=== PATIENT | female | born 1990 | race African-American/Black ===

== ENCOUNTER 2019-10-16 22:29 | Emergency (ER) | payer OTHER ==
[~2019-10-16] VITALS: Ht 175.3 cm; Wt 79.8 kg
[2019-10-16 22:49] LABS: URINE BILIRUBIN NEGATIVE (Negative); URINE BLOOD NEGATIVE (Negative); URINE CLARITY CLEAR; URINE COLOR YELLOW; URINE GLUCOSE-RANDOM* NEGATIVE (Negative); URINE KETONES NEGATIVE (Negative); URINE LEUKOCYTES-REFLEX NEGATIVE (Negative); URINE NITRITE-REFLEX NEGATIVE (Negative); URINE PROTEIN (DIPSTICK) NEGATIVE (Negative); URINE SPECIFIC GRAVITY 1.015 (1.005-1.035); URINE UROBILINOGEN >= 8.0 E.U./dl (0.2-1.0)
[2019-10-16 23:51] LABS: ABSOLUTE NEUTROPHILS 6.1 thou/uL (1.4-8.2); BASOPHILS 0.4 % (0.0-2.0); EOSINOPHILS 2.9 % (0.0-3.0); HEMATOCRIT 30.7 % (37.0-47.0); HEMOGLOBIN 9.7 gm/dL (12.0-15.0); LYMPHOCYTES 23.4 % (24.0-44.0); MCH 23.2 pg (26.0-34.0); MCHC 31.5 g/dL (28.0-37.0); MCV 73.6 fL (80.0-100.0); MONOCYTES 6.3 % (1.0-8.0); PLATELET COUNT 262 thou/uL (150-400); RBC 4.18 mil/uL (4.20-5.00); RDW 20.2 % (10.5-14.5)
[2019-10-16 23:53] LABS: CALCIUM 8.5 mg/dL (8.5-10.1); CREATININE 0.8 mg/dL (0.6-1.0); POTASSIUM 3.1 mmol/L (3.5-5.1)
[2019-10-16 23:59] LABS: ALBUMIN 3.1 g/dL (3.4-5.0); DIRECT BILIRUBIN 0.1 mg/dL (<0.1-0.2); TOTAL BILIRUBIN 0.8 mg/dL (<0.1-1.0); TOTAL PROTEIN 7.4 g/dL (6.4-8.2)
[2019-10-17] MEDS ORDERED: ZOFRAN ODT4 MG PO (00:35)
[2019-10-17] MEDS ORDERED: IBUPROFEN 600600 M1 PO (00:35)
[2019-10-17] MEDS ORDERED: TYLENOL WITH CO1 TA1 PO (00:40)
[2019-10-17 01:02] VITALS: BP 131/80
== END 2019-10-17 01:09 | disposition home or self-care (01) ==
LOC: ER 22:29
PROVIDERS: Emergency Medicine
DX: J06.9 Acute upper respiratory infection, unspecified (principal); R11.2 Nausea with vomiting, unspecified; R10.2 Pelvic and perineal pain; J45.909 Unspecified asthma, uncomplicated; Z91.040 Latex allergy status; Z88.8 Allergy status to other drugs, medicaments and biological substances

== ENCOUNTER 2019-11-03 23:41 | Emergency (ER) | payer OTHER ==
[~2019-11-03] VITALS: Ht 175.3 cm; Wt 124.3 kg
[~2019-11-03 23:41] MED LIST: IBUPROFEN 600600 M1 PO; TYLENOL WITH CO1 TA1 PO; ZOFRAN ODT4 MG PO
[2019-11-03] MEDS ORDERED: PROAIR HFA8.5 GM INH (23:50)
[2019-11-04] MEDS ORDERED: TESSALON PERLE100 M1 PO (00:58)
[2019-11-04 01:08] VITALS: BP 118/75
== END 2019-11-04 01:09 | disposition home or self-care (01) ==
LOC: ER 23:41
DX: R05 Cough (principal); J45.909 Unspecified asthma, uncomplicated; Z91.040 Latex allergy status

== ENCOUNTER 2020-02-06 13:55 | Inpatient (IN) | payer OTHER ==
[~2020-02-06] VITALS: Ht 175.3 cm; Wt 101.6 kg
[~2020-02-06 13:55] MED LIST changes: +PROAIR HFA8.5 GM INH; +TESSALON PERLE100 M1 PO
[2020-02-06 14:05] VITALS: BP 122/98
[2020-02-06] MEDS ORDERED: ONDANSETRON ODT4 MG PO (14:10)
[2020-02-06] MEDS ORDERED: SUPER THERAVIT1 EACH PO (14:10)
[2020-02-06 14:16] LABS: URINE BILIRUBIN 2+ (Negative); URINE BLOOD NEGATIVE (Negative); URINE CLARITY CLEAR; URINE COLOR YELLOW; URINE GLUCOSE-RANDOM* NEGATIVE (Negative); URINE KETONES TRACE (Negative); URINE LEUKOCYTES-REFLEX NEGATIVE (Negative); URINE NITRITE-REFLEX NEGATIVE (Negative); URINE PROTEIN (DIPSTICK) NEGATIVE (Negative); URINE SPECIFIC GRAVITY >= 1.030 (1.005-1.035)
[2020-02-06 14:18] LABS: ICTOTEST (BILI CONFIRMATORY) Negative (Negative)
[2020-02-06 14:49] LABS: ABSOLUTE NEUTROPHILS 2.5 thou/uL (1.4-8.2); BASOPHILS 0.6 % (0.0-2.0); EOSINOPHILS 3.6 % (0.0-3.0); HEMATOCRIT 36.3 % (37.0-47.0); HEMOGLOBIN 11.7 gm/dL (12.0-15.0); LYMPHOCYTES 37.5 % (24.0-44.0); MCH 26.2 pg (26.0-34.0); MCHC 32.2 g/dL (28.0-37.0); MCV 81.5 fL (80.0-100.0); MONOCYTES 9.6 % (1.0-8.0); PLATELET COUNT 261 thou/uL (150-400); POLYS 48.7 % (36.0-66.0); RBC 4.46 mil/uL (4.20-5.00); RDW 17.5 % (10.5-14.5); WBC 5.2 thou/uL (4.0-11.0)
[2020-02-06 15:07] LABS: CALCIUM 8.6 mg/dL (8.5-10.1); CREATININE 0.7 mg/dL (0.6-1.0)
[2020-02-06 15:13] LABS: ALBUMIN 3.3 g/dL (3.4-5.0); TOTAL BILIRUBIN 0.8 mg/dL (<0.1-1.0); TOTAL PROTEIN 7.2 g/dL (6.4-8.2)
[2020-02-06 15:14] LABS: POTASSIUM 2.9 mmol/L (3.5-5.1)
[2020-02-06 20:02] VITALS: BP 120/85
--- NOTE | 2020-02-06 20:07 | NUR ---
GROUP CAPTAIN CALLED IPATIENT UNIT TO GIVE PT REPORT BUT WAS TOLD CALL WILL RETURNED RECIEVING NURSE WAS GIVING NURSING CARE.
--- NOTE | 2020-02-06 20:24 | NUR ---
SECOND CALL PLACED TO INPATIENT UNIT. RECIEVING NURSE STILL IN THE MIDDLE OF PT CARE AND WILL RETURN CALL SHERRON.
--- NOTE | 2020-02-06 22:00 | NUR ---
Pt. arrived to the unit from the emergency room accompanied by staff. She is alert and oriented. Admission assessment and history is completed. C/o abdominal pain and nausea and has been medicated.
[2020-02-07 05:06] LABS: HEMATOCRIT 31.9 % (37.0-47.0); HEMOGLOBIN 10.3 gm/dL (12.0-15.0); MCH 26.5 pg (26.0-34.0); MCHC 32.2 g/dL (28.0-37.0); MCV 82.4 fL (80.0-100.0); RBC 3.87 mil/uL (4.20-5.00); RDW 17.2 % (10.5-14.5); WBC 4.5 thou/uL (4.0-11.0)
[2020-02-07 05:27] LABS: CALCIUM 7.8 mg/dL (8.5-10.1); CREATININE 0.6 mg/dL (0.6-1.0); MAGNESIUM 2.2 mg/dL (1.8-2.4)
--- NOTE | 2020-02-07 05:34 | NUR ---
Pt. medicated for c/o abdominal pain and nausea (see emar) with some relief. Assisted to the bathroom with stand by assistance and voided without difficulty.
[2020-02-07 07:28] VITALS: BP 118/76
[2020-02-07 13:07] LABS: % SATURATION 11 % (20-39); IRON 32 ug/dL (50-170); TIBC 279 ug/dL (250-450)
--- NOTE | 2020-02-07 13:35 | NUR ---
tried calling pt x 2 in room, no answer will cont following as needed for dc needs.
[2020-02-07 15:40] VITALS: BP 137/77
--- NOTE | 2020-02-07 15:53 | NUR ---
cm spoke with pt via phone call. intro to cm, transition of care. pt a & o x 4, pleasant and able to make her needs know. noted in chart possible going for egd scope tomorrow per GI and records requested from [facility] clinic. "live at home with family and 4 children. help my mom and take care of my children. have family taking care for them. 2 steps to enter then all on main floor. 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 manage own medication. independent when feeling ok. no dme. no past hh or rehab."/bobbi. will cont following as needed for dc needs. no anticipated needs.
--- NOTE | 2020-02-07 17:07 | NUR ---
Assumed pt care this am, vs stable pt us still confused but redirectebale. Blood sugars done medication given as per emar. Diet and medications are well tolerated. Refused wound dressing since pt stated she wanted this done before bedtime. POC followed with no signs or verbalizations of distress noted. IV removed, DC 'instructions and prescriptions given to the pt, was wheeled down to the pharmacy to fill prescriptions then was picked up by transport. Pt is now dc
--- NOTE | 2020-02-07 19:27 | NUR ---
Assumed pt care this am, alert and oriented x 4 received NPO. Pain managed with medication, partial relief noted. Covid test done by covid nurse results are negative. Nausea noted as well managed with medication. POC followed, no lsigns of distress noted.
[2020-02-07 19:43] VITALS: BP 128/74
[2020-02-08 03:34] VITALS: BP 135/84
[2020-02-08 04:29] LABS: HEMATOCRIT 32.5 % (37.0-47.0); HEMOGLOBIN 10.5 gm/dL (12.0-15.0); MCH 26.8 pg (26.0-34.0); MCHC 32.4 g/dL (28.0-37.0); MCV 82.5 fL (80.0-100.0); RBC 3.93 mil/uL (4.20-5.00); RDW 17.1 % (10.5-14.5); WBC 4.5 thou/uL (4.0-11.0)
--- NOTE | 2020-02-08 07:05 | NUR ---
PROGRESS PT A/O X4 UP AD MAGUI TOLERATING CLEAR LIQUID DIET, IVF'S INFUSING WITHOUT DIFFICULTY. WOUNDS TO BILATERAL FEET CHANGED CLEANSED WITH NS IODINE APPLIED AND WRAPPED WITH KERLIX. TAKING MORPHINE FOR PAIN PRN. VOIDING QS TO HAVE I&D TODAY CONSENT ON FRONT OF CHART.
[2020-02-08 07:40] VITALS: BP 116/80
--- NOTE | 2020-02-08 09:30 | NUR ---
ASSUMED CARE AT 0700.PT ALERT AND ORIENTED. C/O NAUSEA AND PAIN. WILL GIVE PRN MEDS ORDERED. IVF INFUSING WITHOUT COMPLICATIONS. PT NPO WAITING FOR HER PROCEDURE. WILL CONTINUE TO MONITOR
[2020-02-08 11:37] VITALS: BP 132/89
--- NOTE | 2020-02-08 15:56 | P ---
[facility] [place] [address] PROCEDURE REPORT Name: JUNIOR HOUSTON Room #: 463- ADM IN M.R.#: [id number] Admission: 02/06/20 Attend Phys: Sandeep Gotti MD Discharge: Date of : 89 Report #: [id number] THIS REPORT FOR: cc: MARLENY - Kimberley family physician/PCP MARLENY - No family physician/PCP Efrain Cuello MD ~ CC: MARLENY physician/PCP Sandeep Gotti DATE OF SERVICE: 02/08/2020 UPPER ENDOSCOPY REPORT BRIEF HISTORY: The patient is a 29-year-old woman who underwent a gastric sleeve surgery for obesity, last May. She developed evidence of aspiration and worsening reflux symptoms and was converted to a Han-en-Y gastric bypass on 12/31/2019 of this year. She has done well until the past few days when she developed increasing upper abdominal pain as well as nausea and vomiting. Gastric mucosal biopsies were obtained to evaluate for H. pylori. PREOPERATIVE DIAGNOSIS: History of bariatric surgery with nausea, vomiting, abdominal pain. POSTOPERATIVE DIAGNOSES: 1. Anastomotic ulcer. 2. Surgical changes consistent with Han-en-Y gastric bypass. MEDICATIONS: Deep sedation with propofol per anesthesia. SPECIMEN: Biopsies of gastric mucosa, rule out H. pylori. ESTIMATED BLOOD LOSS: 3 mL. PROCEDURE: EGD with biopsy. FINDINGS: Prior to propofol sedation, procedure of upper endoscopy was discussed with the patient as well as potential risks, benefits and complications. She indicates she understands and desires to proceed. DESCRIPTION OF PROCEDURE: With the patient in left lateral decubitus position, the Olympus video endoscope was inserted in the cervical esophagus under direct vision without difficulty. Examination of this organ through its entire length revealed normal esophageal mucosa down to the squamocolumnar junction. The squamocolumnar junction was inspected and noted to be unremarkable. No evidence of esophagitis, strictures or masses. The scope was advanced into the gastric pouch. Findings were consistent with Han-en-Y gastric bypass. Her gastric [facility] [address] [place] [address] PROCEDURE REPORT Name: JUNIOR HOUSTON Room #: [address] [place] [address] [place] ..#: [id number] Admission: 02/06/20 Attend Phys: Sandeep Gotti MD Discharge: Date of : 89 Report #: [id number] pouch was about the size of a lemon. The gastric mucosa was intact. There was no evidence of ulceration or bleeding. Examination of the anastomosis revealed a linear ulcer about 10-12 mm in length along the anastomotic margin. There was suture material in this area as well. The anastomosis was not strictured. There was no evidence of bleeding. It had a benign appearance. The blind end of the small bowel was about 3 inches in length and was unremarkable without evidence of ulceration. The scope was passed down the Han-en-Y limb as far as possible. The mucosa was normal. There was no evidence of stricturing or bleeding. The Han-en-Y anastomosis could not be identified. At that point, the scope was slowly withdrawn and careful circumferential views confirmed the above findings. The patient tolerated the procedure well. DISPOSITION: The patient with recent onset of abdominal pain, nausea and vomiting. She has an anastomotic ulcer. Biopsies were obtained to evaluate for H. pylori. We will add sucralfate at this point in time. We will start her on clear liquids. <ELECTRONICALLY SIGNED> By: Efrain Cuello MD 02/08/20 1556 1050 1222 Efrain Cuello MD /nt
--- NOTE | 2020-02-08 16:12 | NUR ---
PT HAD EGD THIS DAY. IT IS ANTICIPATED THAT PT WILL LIKELY BE ABLE TO DC HOME WITH NO NEEDS ONCE MEDICALLY STABLE. CM ABLE TO ASSIST SHOULD ANY NEEDS ARISE.
[2020-02-08 19:55] VITALS: BP 132/73
--- NOTE | 2020-02-09 02:14 | NUR ---
PT WAS TRANSFERRED TO THE UNIT DURING SHIFT CHANGE FROM 4W.PT AXOX4.PT TOOK A SHOWER AT HS.PT C/O PAIN AND NAUSEA,MANAGED WITH MED.PT UP ADLIB IN ROOM.PT CONT ON IVF ORDERED.PT RESTING ON HER BED AT THIS TIME.CALL LIGHT WITHIN REACH.
[2020-02-09 04:00] VITALS: BP 127/82
[2020-02-09 10:33] LABS: ABSOLUTE NEUTROPHILS 2.5 thou/uL (1.4-8.2); BASOPHILS 0.2 % (0.0-2.0); EOSINOPHILS 3.5 % (0.0-3.0); HEMATOCRIT 29.8 % (37.0-47.0); HEMOGLOBIN 9.7 gm/dL (12.0-15.0); LYMPHOCYTES 33.4 % (24.0-44.0); MCH 26.5 pg (26.0-34.0); MCHC 32.6 g/dL (28.0-37.0); MCV 81.4 fL (80.0-100.0); MONOCYTES 6.9 % (1.0-8.0); PLATELET COUNT 191 thou/uL (150-400); RBC 3.66 mil/uL (4.20-5.00); RDW 16.4 % (10.5-14.5); WBC 4.6 thou/uL (4.0-11.0)
[2020-02-09 10:47] LABS: ALBUMIN 2.4 g/dL (3.4-5.0); CALCIUM 7.7 mg/dL (8.5-10.1); CREATININE 0.6 mg/dL (0.6-1.0); MAGNESIUM 1.4 mg/dL (1.8-2.4); TOTAL BILIRUBIN 0.6 mg/dL (<0.1-1.0); TOTAL PROTEIN 5.5 g/dL (6.4-8.2)
[2020-02-09 10:50] LABS: POTASSIUM 2.8 mmol/L (3.5-5.1)
[2020-02-09 13:36] LABS: TSH 0.624 uIU/mL (0.358-3.740)
[2020-02-09 16:25] LABS: HEMATOCRIT 31.3 % (37.0-47.0); HEMOGLOBIN 10.2 gm/dL (12.0-15.0); MCH 26.7 pg (26.0-34.0); MCHC 32.7 g/dL (28.0-37.0); MCV 81.5 fL (80.0-100.0); RBC 3.83 mil/uL (4.20-5.00); WBC 4.3 thou/uL (4.0-11.0)
[2020-02-09 16:34] LABS: ALBUMIN 2.5 g/dL (3.4-5.0); CALCIUM 7.6 mg/dL (8.5-10.1); CREATININE 0.6 mg/dL (0.6-1.0); MAGNESIUM 1.8 mg/dL (1.8-2.4); POTASSIUM 3.1 mmol/L (3.5-5.1); TOTAL BILIRUBIN 0.5 mg/dL (<0.1-1.0)
[2020-02-09 17:17] VITALS: BP 117/80
[2020-02-09 20:06] VITALS: BP 131/80
--- NOTE | 2020-02-09 20:25 | NUR ---
PT CARE ASSUMED AT 0700. A&Ox4. PT UP AT MAGUI INDEPENDENTLY IN THE ROOM. PT CONTINUES TO HAVE NAUSEA WHEN EATING AND HAS HAD ISSUES WITH THE KITCHEN SENDING DISHES THAT CONTAIN TOO MANY CARBS. PT CANNOT HAVE CARBONATED DRINKS DUE TO HER GASTRIC SLEEVE. PAIN MANAGED WITH PAIN MEDICATION Q3H. XR DONE OF THE ABDOMEN WITH NO OBSTRUCTION VISUAL. PT IV PATENT WITH NO REDNESS OR EDEMA. IV FLUIDS INFUSING. CALL LIGHT IN REACH. PT HAS NOT HAD A BM SINCE 02/02 AND HAS SUPPOSITORIES AND MILK OF MAGNESIUM ORDERED. WILL CONTINUE TO MONITOR.
--- NOTE | 2020-02-10 02:54 | NUR ---
PT C/O PAIN ON HER ABD,MANAGED WITH MED.PT STATED THAT SHE WAS TOLD THAT SHE WILL RECEIVE MORE POTASSIUM SINCE HER POTASSIUM WAS STILL 3.1,SAMPLE CASE PORTER ON DUTY NOTIFIED,ORDER NOTED AND CARRIED OUT.PT UP ADLIB IN HER ROOM.PT RECIEVED BISACODYL SUPPOSITORY,PT WAS ABLE TO HAVE SMALL STOOL BUT SHE STATED THAT SHE STILL NEED TO GO.IVF ORDERED.PT RESTING ON HER BED AT THIS TIME.CALL LIGHT WITHIN REACH.
[2020-02-10 04:25] VITALS: BP 125/64
[2020-02-10 07:10] VITALS: BP 125/76
--- NOTE | 2020-02-10 09:25 | NUR ---
SEE RAPID RESPONSE INTERVENTION. PT WILL STAY ON 4 SOUTH.
--- NOTE | 2020-02-10 20:08 | NUR ---
PT CARE ASSUMED AT 0700. A&Ox4. ELECTROLYTE PROTOCOL IN PLACE. PT COMPLAINED ABOUT CHEST PAIN THIS MORNING THAT WAS RADIATING TO HER ARM AND BACK WITH CHEST PAIN. A RAPID WAS CALLED. EKG NORMAL. 2 LITERSE FOR COMFORT. TROPONIN NEGATIVE. PAIN IS NOT MANAGED WELL WITH THE PAIN MEDICATION ON BOARD. PE PROTOCOL CT WAS PERFORMED WITH AN ELEVATED D-DIMER AND AN ENLARGED GALLBLADDER WAS VISUALIZED. PT IS TO HAVE A PIPIDA TOMORROW IF POS. SURGWILL BE CONSULTED. PT IS NPO WITH SIPS OF WATER FOR PILLS. POTASSIUM CONITUES TO BE LOW AND PT IS NOW ON A ELECTROLYTE PROTOCOL. PT DECLINED FAMILY UPDATE. GLUCOSE WAS LOW RESOLVED WITH 2 ORANGE JUICES AND FLUIDS BEING SWITCHED TO D5 0.45%. WILL CONTINUE TO MONITOR. REPORT GIVEN TO SHANDA MALONE.
[2020-02-10 20:45] VITALS: BP 124/83
[2020-02-11 03:40] VITALS: BP 122/82
[2020-02-11 04:42] LABS: BASOPHILS 0.4 % (0.0-2.0); EOSINOPHILS 4.7 % (0.0-3.0); HEMATOCRIT 31.6 % (37.0-47.0); HEMOGLOBIN 10.3 gm/dL (12.0-15.0); LYMPHOCYTES 32.2 % (24.0-44.0); MCH 26.8 pg (26.0-34.0); MCHC 32.7 g/dL (28.0-37.0); MCV 82.1 fL (80.0-100.0); PLATELET COUNT 209 thou/uL (150-400); POLYS 56.7 % (36.0-66.0); RBC 3.85 mil/uL (4.20-5.00); RDW 16.9 % (10.5-14.5); WBC 5.3 thou/uL (4.0-11.0)
[2020-02-11 04:43] LABS: ALBUMIN 2.4 g/dL (3.4-5.0); CREATININE 0.6 mg/dL (0.6-1.0); DIRECT BILIRUBIN 0.1 mg/dL (<0.1-0.2); MAGNESIUM 1.6 mg/dL (1.8-2.4); PHOSPHORUS 3.6 mg/dL (2.5-4.9); POTASSIUM 3.2 mmol/L (3.5-5.1); TOTAL BILIRUBIN 0.6 mg/dL (<0.1-1.0); TOTAL PROTEIN 5.6 g/dL (6.4-8.2)
--- NOTE | 2020-02-11 05:32 | NUR ---
PT AOX4. PT REPORTS NONCARDIAC PAIN IN CHEST AND PAIN IN ABDOMEN. PT REPORTS CURRENT PRN PAIN MEDICATION INEFFECTIVE. LEASING ASSOCIATE PROVIDER NOTIFIED, RECEIVED ORDER FOR PRN IV 2MG MORPHINE Q3HR. PT TOLERATING NPO WITH SIPS OF WATER WITH MEDICATIONS. PT AMBULATING INDEPENDENTLY. PT REPORTS SHE HAS NOT BEEN SLEEPING WELL AND HAS 7/10 ANXIETY RELATED TO HOSPITAL STAY AND UPCOMING PROCEDURE. LEASING ASSOCIATE PROVIDER NOTIFIED, EMAR UPDATED. PT OBSERVED RESTING WITHOUT INTERRUPTION OR OBSERVATION OF PAIN, DISCOMFORT, OR SOB. ENCOURAGED PT TO NOTIFY STAFF FOR ALL NEEDS. CALL LIGHT WITHIN REACH, BED ALARM ON, BED IN LOWEST POSITION. WILL CONTINUE TO MONITOR.
[2020-02-11 07:25] VITALS: BP 137/90
--- NOTE | 2020-02-11 08:05 | EKG ---
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
--- NOTE | 2020-02-11 17:08 | PATH ---
[facility] [address] [place] [address] PATHOLOGY RPT PROCEDURE Name: SANDRA DELGADILLO Room #: 441-P ADM IN M.R.#: [id number] Admission: 02/06/20 Date of : 89 Discharge: Report #: [id number] Path Case #: [id number] [facility] Accession Number: [id number] . 01 Material submitted: . stomach - BX OF STOMACH . 01 Clinical history: . GERD . 02 Diagnosis: Gastric mucosa, stomach rule out H. pylori, endoscopic biopsy: - Mild chronic inflammation. - Negative for intestinal metaplasia or atrophy. - Negative for Helicobacter pylori (properly controlled immunohistochemical stain performed). (IUV/db; 02/11/2020) LBQ 02/11/2020 1258 Local . 02 Electronically signed: . Maritza Anand MD, Pathologist NPI- [id number] . 01 Gross description: . Received in formalin labeled "Sandra Delgadillo, BX of stomach rule out H. pylori" is a 0.6 x 0.4 x 0.1 cm aggregate of solis-brown soft tissue fragments. The specimen is submitted entirely in A1. ([facility]; 02/10/2020) [facility] 02/10/2020 1219 Local . 02 Pathologist provided ICD-10: K29.50 . 02 CPT . 106410, [id number] Specimen Comment: A courtesy copy of this report has been sent to [phone] Specimen Comment: [phone] Specimen Comment: Report sent to / DR GRIJALVA Performed at: [address], [place], [place] [id number] MD Lamine Hernandez MD Phone: [phone] Performed at: [address] [id number] MD Maritza Anand MD Phone: [phone]
[2020-02-11 19:19] VITALS: BP 111/72
--- NOTE | 2020-02-11 20:02 | NUR ---
PT ASSESSED AT START OF SHIFT. NPO THIS AM UNTIL AFTER PIPIDA SCAN. DIET ADVANCED TO REGULAR PER PT ABILITY TO EAT W/O NAUSEA OR PAIN. DR. HOFFMANN IN RECENENTLY AND TOLD PT SHE NEEDS TO BE SEEN BY SURGEON HER PIPIDA RESPONSE WAS NOT NORMAL AND SHE MAY STILL NEED TO HAVE GALLBLADDER OUT. SHE DID EAT VERY SM AMT OF CHICKEN AND POTATOES AND WHILE NO NAUSEA DID HAVE INCREASING ABD PAIN.
--- NOTE | 2020-02-12 04:35 | NUR ---
ASSUMED PT CARE AT 1900. PAIN BEING MANAGED WITH IV MEDS. UP AD MAGUI IN ROOM. NO SIGNIFICANT CHANGES OVERNIGHT, CURRENTLY SLEEPING IN BED WITH CALL LIGHT IN REACH.
[2020-02-12 07:00] VITALS: BP 106/59
[2020-02-12] MEDS ORDERED: TRAZODONE HCL50 MG PO (10:35)
[2020-02-12] MEDS ORDERED: CARAFATE 1 GM TA1 G1 PO (10:36)
[2020-02-12] MEDS ORDERED: PANTOPRAZOLE SO40 M1 PO (10:36)
--- NOTE | 2020-02-12 11:42 | NUR ---
ON-GOING ASSESSMENT: CM REVIEWED CHART AND SPOKE WITH PATIENT VIA TELEPHONE. PT HAS ORDERS TO DISCHARGE HOME TODAY. PT REPORTS HAVING A RIDE HOME. PT REPORTS HAVING NO NEEDS FROM CM PRIOR TO DISCHARGE.
[2020-02-12 16:00] VITALS: BP 115/74
--- NOTE | 2020-02-12 16:21 | NUR ---
ASSUMED CARE OF THE PT AT 0700. PT IS AMBULATORY AND NOT A FALL RISK. PAIN CONTROLLED BY PAIN MEDS, SEE EMAR. PT CANNOT TOLERATE EATING, CAUSES N/V. R UPPERARM DRY AND INTACT. NO SCD'S. PER GI AND SURGEON PT IS TO HAVE SX TOMORROW. AWAITING CALL FROM SURGEON TO CONFIRM SX. FALL PRECAUTIONS IN PLACE, BED IN THE LOWEST POSITION AND CALL LIGHT IS WITHIN REACH WILL CONTINUE TO MONITOR THE PT.
[2020-02-12 21:03] VITALS: BP 121/78
--- NOTE | 2020-02-13 00:37 | NUR ---
ASSUMED PT CARE AT 1900. PAIN MANAGED WITH IV PAIN MEDS. NPO AT MIDNIGHT FOR SURGERY TOMORROW. UP AD MAGUI IN ROOM. FLUIDS INFUSING PER ORDER. NO OTHER SIGNIFICANT CHANGES.
[2020-02-13 04:03] VITALS: BP 107/63
[2020-02-13 09:45] VITALS: BP 141/84
--- NOTE | 2020-02-13 10:30 | NUR ---
ASSUMED CARE OF THE PT AT 0700. PT WAS OFF THE UNIT AT SHIFT CHANGE IN SX, RETURNED AROUND 0930, VS ARE NORMAL, C/O PAIN IN THE ABD, 4 LAP SITES, NO DRAINAGE. PT WILL BE REPOSITIONED Q2 HOURS. PT ON FULL LIQUID DIET. SCD'S IN PLACE, PT IS NOW A FALL RISK, FALL PRECAUTIONS IN PLACE. PAIN CONTROLLED BY PAIN MEDS, SEE EMAR. BED IN THE LOWEST POSITION AND CALL LIGHT IS IWTHIN REACH. WILL CONTINUE TO MONITOR THE PT.
--- NOTE | 2020-02-13 15:33 | NUR ---
PT HAD LAP JENNYFER THIS DAY. PT STILL WITH PAIN AND BILLIARY COLIC. IT IS ANTICIAPTED THAT PT WILL BE ABLE TO DC HOME WITH NO NEEDS ONCE MEDICALLY STABLE. CM TO FOLLOW INDICATED WITH DC PLANNING.
[2020-02-13 16:30] VITALS: BP 94/51
[2020-02-13 19:41] VITALS: BP 121/71
--- NOTE | 2020-02-13 19:47 | NUR ---
1899 ASSUMED CARE OF PT AFTER BEDSIDE REPORT, PT RESTIN IN BED C/O PAIN 06/05 1915 BASELINE ASSESSMENT COMPLETED, ABD SOFT BUT PAINFULWITH SOFT PALPATION, INCISIONS C/D/I GLUE, DENIES N'V, STATES PASSING FLATUS AND KEEPING CLEAR LIQUIDS DOWN, NO BM URINATING WITHOUT DIFFICULTY, UP WITH ASSIST, RESP UNLABORED AND LCTAB, ENCOURAGED TO DEEP BREATHE COUGH AND CHANGE POSITIONS OFTEN, FALL PRECAUTIONS IN PLACE LATEX ALLERGY BAND ON, WILL CONTINUE TO MONITOR PAIN MED GIVEN PER MAR
[2020-02-14 00:49] VITALS: BP 122/73
[2020-02-14 04:20] VITALS: BP 125/77
[2020-02-14 04:53] LABS: HEMATOCRIT 33.4 % (37.0-47.0); HEMOGLOBIN 10.8 gm/dL (12.0-15.0); MCH 26.6 pg (26.0-34.0); MCHC 32.4 g/dL (28.0-37.0); RBC 4.07 mil/uL (4.20-5.00); RDW 17.9 % (10.5-14.5); WBC 9.3 thou/uL (4.0-11.0)
[2020-02-14 06:06] LABS: ALBUMIN 2.4 g/dL (3.4-5.0); CALCIUM 8.6 mg/dL (8.5-10.1); CREATININE 0.6 mg/dL (0.6-1.0); MAGNESIUM 1.6 mg/dL (1.8-2.4); POTASSIUM 3.8 mmol/L (3.5-5.1); TOTAL BILIRUBIN 0.5 mg/dL (<0.1-1.0); TOTAL PROTEIN 5.9 g/dL (6.4-8.2)
[2020-02-14 07:49] VITALS: BP 126/74
[2020-02-14 11:14] VITALS: BP 126/74
--- NOTE | 2020-02-14 11:41 | NUR ---
discussed during los, dc home today. no needs.
[2020-02-14] MEDS ORDERED: ACETAMINOPHEN325 M1 PO (13:03)
[2020-02-14] MEDS ORDERED: OXYCODONE H5 MG/5 ML PO (13:03)
--- NOTE | 2020-02-14 15:08 | PATH ---
[facility] [address] [place] [address] PATHOLOGY RPT PROCEDURE Name: JUNIOR HOUSTON Room #: 441-P ADM IN M.R.#: [id number] Admission: 02/06/20 Date of : 89 Discharge: Report #: [id number] Path Case #: [id number] [facility] Accession Number: [id number] . 01 Material submitted: . gallbladder - GALLBLADDER . 01 Clinical history: . Biliary colic; abdominal pain; nausea; vomiting; hypokalemia . 02 Diagnosis: Gallbladder, cholecystectomy: - Moderate chronic cholecystitis with prominent lymphoid aggregates. - Cauterized hepatic parenchyma showing the scattered foci of macrovesicular steatosis. (IUV:pit 02/14/2020) QTP 02/14/2020 1207 Local . 02 Electronically signed: . Maritza Anand MD, Pathologist NPI- [id number] . 01 Gross description: . The specimen is received in formalin, labeled "reji Chu". Received is an intact gallbladder measuring 11.0 x 4.1 x 3.3 cm in greatest dimensions displaying a pink-mao serosal surface. Opening the specimen reveals a velvety, bile-stained mucosa with a gallbladder wall thickness of 0.1 cm. Calculi are not present, and no masses or lesions are noted grossly. Toward the fundal aspect of the specimen, there is a slight amount of attached orange-solis liver tissue measuring 1.2 x 1.0 x 0.3 cm in greatest dimensions. Cnc Manager sections, to include the proximal margin and liver tissue, are submitted in cassette A1. (CAA; 02/13/2020) QAC/QAC 02/14/2020 1206 Local . 02 Pathologist provided ICD-10: K81.1 . 02 CPT . 948920 Specimen Comment: A courtesy copy of this report has been sent to [phone] Specimen Comment: Report sent to Performed at: [address] [id number] MD Lamine Hernandez MD Phone: [phone] Performed at: 02 [place] [address] PATHOLOGY RPT PROCEDURE Name: JUNIOR HOUSTON Room #: 441-P ADM IN M.R.#: [id number] Admission: 02/06/20 Date of : 89 Discharge: Report #: [id number] Path Case #: [id number] [facility] [address], [place], [place] [id number] MD Maritza Anand MD Phone: [phone]
[2020-02-14 15:22] VITALS: BP 126/74
== END 2020-02-14 16:03 | disposition home or self-care (01) | DRG 356 ==
LOC: ER 13:55 → 4S 18:59 → 4W 18:59 → EROBS 18:59 → 4W 21:38 → 4S 02-08 18:17
PROVIDERS: Internal Medicine; Nurse Practitioner; Nurse Practitioner Family; Physician Assistant; Specialist; ADMIT Hospitalist
PROC: 0DB68ZX Excision of Stomach, Via Natural or Artificial Opening Endoscopic, Diagnostic (ICD-10-PCS; principal; 2020-02-08)
PROC: 0FT44ZZ Resection of Gallbladder, Percutaneous Endoscopic Approach (ICD-10-PCS; 2020-02-13)
DX: K28.9 Gastrojejunal ulcer, unspecified as acute or chronic, without hemorrhage or perforation (principal); E43 Unspecified severe protein-calorie malnutrition; J45.909 Unspecified asthma, uncomplicated; E87.6 Hypokalemia; K59.00 Constipation, unspecified; E83.42 Hypomagnesemia; R13.10 Dysphagia, unspecified; K80.50 Calculus of bile duct without cholangitis or cholecystitis without obstruction; E66.9 Obesity, unspecified; K82.8 Other specified diseases of gallbladder; Z88.8 Allergy status to other drugs, medicaments and biological substances; Z91.040 Latex allergy status; Z68.33 Body mass index [BMI] 33.0-33.9, adult; Z20.828 Contact with and (suspected) exposure to other viral communicable diseases
CPT/HCPCS: 10045; 10100; 10195; 50010; 50101; 50249; 50411; 50555; 50558; 51489; 52265; 52266; 53307; 53310; 53312; 54022; 54118; 55245; 56462; 56525; 56526; 62110; 62900; 70005

== ENCOUNTER 2020-07-05 14:04 | Emergency (ER) | payer OTHER ==
[~2020-07-05] VITALS: Ht 175.3 cm; Wt 89.4 kg
[~2020-07-05 14:04] MED LIST changes: +ACETAMINOPHEN325 M1 PO; +CARAFATE 1 GM TA1 G1 PO; +ONDANSETRON ODT4 MG PO; +OXYCODONE H5 MG/5 ML PO; +PANTOPRAZOLE SO40 M1 PO; +SUPER THERAVIT1 EACH PO; +TRAZODONE HCL50 MG PO
[2020-07-05 16:23] LABS: HEMATOCRIT 32.2 % (37.0-47.0); HEMOGLOBIN 10.4 gm/dL (12.0-15.0); MCH 26.4 pg (26.0-34.0); MCHC 32.4 g/dL (28.0-37.0); MCV 81.5 fL (80.0-100.0); RBC 3.95 mil/uL (4.20-5.00); WBC 5.1 thou/uL (4.0-11.0)
[2020-07-05 16:33] LABS: CALCIUM 8.4 mg/dL (8.5-10.1); CREATININE 0.7 mg/dL (0.6-1.0); MAGNESIUM 1.6 mg/dL (1.8-2.4); POTASSIUM 3.5 mmol/L (3.5-5.1)
[2020-07-05] MEDS ORDERED: BUTALB-APAP-CA1 EACH PO (18:16)
[2020-07-05 21:10] VITALS: BP 120/77
== END 2020-07-05 21:15 | disposition home or self-care (01) ==
LOC: ER 14:04
PROVIDERS: Physician Assistant
DX: G43.909 Migraine, unspecified, not intractable, without status migrainosus (principal); R20.2 Paresthesia of skin; J45.909 Unspecified asthma, uncomplicated; Z79.899 Other long term (current) drug therapy; Z88.8 Allergy status to other drugs, medicaments and biological substances; Z91.041 Radiographic dye allergy status

== ENCOUNTER 2020-07-08 10:40 | Emergency (ER) | payer OTHER ==
[~2020-07-08] VITALS: Ht 177.8 cm; Wt 90.7 kg
[~2020-07-08 10:40] MED LIST changes: +BUTALB-APAP-CA1 EACH PO
[2020-07-08] MEDS ORDERED: K-DUR 20 MEQ T20 MEQ PO (10:56)
[2020-07-08] MEDS ORDERED: BUTALB-APAP-CA1 EACH PO (12:38)
[2020-07-08 14:26] VITALS: BP 127/83
== END 2020-07-08 14:26 | disposition home or self-care (01) ==
LOC: ER 10:40
DX: G43.909 Migraine, unspecified, not intractable, without status migrainosus (principal); J45.909 Unspecified asthma, uncomplicated; Z79.899 Other long term (current) drug therapy; Z88.8 Allergy status to other drugs, medicaments and biological substances; Z91.040 Latex allergy status

== ENCOUNTER 2020-10-08 23:52 | Emergency (ER) | payer OTHER ==
[~2020-10-08] VITALS: Ht 175.3 cm; Wt 88.9 kg
[~2020-10-08 23:52] MED LIST changes: +K-DUR 20 MEQ T20 MEQ PO
[2020-10-09 00:26] LABS: URINE BILIRUBIN 2+ (Negative); URINE BLOOD TRACE (Negative); URINE CLARITY CLOUDY; URINE COLOR GREEN; URINE GLUCOSE-RANDOM* NEGATIVE (Negative); URINE KETONES 1+ (Negative); URINE PROTEIN (DIPSTICK) TRACE (Negative); URINE SPECIFIC GRAVITY 1.025 (1.005-1.035)
[2020-10-09 00:30] LABS: URINE LEUKOCYTES-REFLEX 3+ (Negative); URINE NITRITE-REFLEX POSITIVE (Negative)
[2020-10-09 00:34] LABS: SQUAMOUS 4-10 Moderate /LPF (0-3); URINE RBC 0-2 Rare /HPF (0-2); URINE WBC-REFLEX >25 Many /HPF (0-5); WBC CLUMPS Few (None Seen)
[2020-10-09 00:35] LABS: CASTS None Seen /LPF (None Seen); CRYSTALS None Seen /LPF (None Seen); MUCUS 0-3 Light strn/LPF (None Seen)
[2020-10-09 01:04] LABS: CALCIUM 8.8 mg/dL (8.5-10.1); CREATININE 0.7 mg/dL (0.6-1.0); POTASSIUM 3.2 mmol/L (3.5-5.1)
[2020-10-09] MEDS ORDERED: ZOFRAN ODT4 MG PO (01:16)
[2020-10-09] MEDS ORDERED: KEFLEX500 M1 PO (01:18)
[2020-10-09 01:23] VITALS: BP 126/88
== END 2020-10-09 01:23 | disposition home or self-care (01) ==
LOC: ER 23:52
PROVIDERS: Emergency Medicine
DX: G43.109 Migraine with aura, not intractable, without status migrainosus (principal); N39.0 Urinary tract infection, site not specified; J45.909 Unspecified asthma, uncomplicated; Z88.8 Allergy status to other drugs, medicaments and biological substances; Z91.040 Latex allergy status; Z79.899 Other long term (current) drug therapy

== ENCOUNTER 2020-10-09 18:42 | Emergency (ER) | payer OTHER ==
[~2020-10-09] VITALS: Ht 175.3 cm; Wt 89.8 kg
[~2020-10-09 18:42] MED LIST changes: +KEFLEX500 M1 PO
[2020-10-09 20:57] VITALS: BP 122/85
== END 2020-10-09 20:40 | disposition home or self-care (01) ==
LOC: ER 18:42
DX: R51.9 Headache, unspecified (principal); J45.909 Unspecified asthma, uncomplicated; Z91.040 Latex allergy status; Z88.6 Allergy status to analgesic agent; Z88.8 Allergy status to other drugs, medicaments and biological substances; Z79.899 Other long term (current) drug therapy

== ENCOUNTER 2020-11-01 20:30 | Emergency (ER) | payer OTHER ==
[~2020-11-01] VITALS: Ht 177.8 cm; Wt 89.8 kg
[2020-11-01] MEDS ORDERED: ADVAIR 100-501 EACH INH (20:51)
[2020-11-01 21:46] LABS: ABSOLUTE NEUTROPHILS 2.6 thou/uL (1.4-8.2); BASOPHILS 0.3 % (0.0-2.0); EOSINOPHILS 0.4 % (0.0-3.0); HEMATOCRIT 29.7 % (37.0-47.0); HEMOGLOBIN 9.7 gm/dL (12.0-15.0); LYMPHOCYTES 30.2 % (24.0-44.0); MCH 27.5 pg (26.0-34.0); MCHC 32.6 g/dL (28.0-37.0); MCV 84.3 fL (80.0-100.0); PLATELET COUNT 173 thou/uL (150-400); POLYS 62.1 % (36.0-66.0); RBC 3.53 mil/uL (4.20-5.00); RDW 14.7 % (10.5-14.5); WBC 4.1 thou/uL (4.0-11.0)
[2020-11-01 21:48] LABS: ANION GAP 8 mmol/L (7-16); BUN 6 mg/dL (7-18); CALCIUM 7.9 mg/dL (8.5-10.1); CHLORIDE 101 mmol/L (98-107); CO2 28 mmol/L (21-32); CREATININE 0.7 mg/dL (0.6-1.0); GLUCOSE 79 mg/dL (74-106); POTASSIUM 3.1 mmol/L (3.5-5.1); SODIUM 137 mmol/L (136-145)
[2020-11-01 21:50] LABS: URINE BILIRUBIN NEGATIVE (Negative); URINE BLOOD NEGATIVE (Negative); URINE CLARITY CLEAR; URINE COLOR YELLOW; URINE GLUCOSE-RANDOM* NEGATIVE (Negative); URINE KETONES NEGATIVE (Negative); URINE LEUKOCYTES-REFLEX NEGATIVE (Negative); URINE NITRITE-REFLEX NEGATIVE (Negative); URINE PROTEIN (DIPSTICK) NEGATIVE (Negative); URINE SPECIFIC GRAVITY 1.015 (1.005-1.035); URINE UROBILINOGEN >= 8.0 E.U./dl (0.2-1.0)
[2020-11-01 21:58] LABS: SGOT 26 U/L (15-37); SGPT 21 U/L (30-65); TOTAL BILIRUBIN 0.4 mg/dL (0.2-1.0); TOTAL PROTEIN 6.9 g/dL (6.4-8.2); TROPONIN-I <0.06 ng/mL (<0.06)
[2020-11-02] MEDS ORDERED: VIRTUSSIN AC W473 ML PO ×2 (00:18→00:21)
[2020-11-02] MEDS ORDERED: PROAIR HFA8.5 GM INH ×2 (00:18→00:19)
[2020-11-02] MEDS ORDERED: PREDNISONE 20 M20 M1 PO (00:19)
[2020-11-02] MEDS ORDERED: AZITHROMYCIN 2250 MG PO (00:20)
[2020-11-02 00:31] VITALS: BP 116/75
--- NOTE | 2020-11-03 07:25 | EKG ---
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
== END 2020-11-02 00:35 | disposition home or self-care (01) ==
LOC: ER 20:30
PROVIDERS: Emergency Medicine
DX: U07.1 COVID-19 (principal); J12.82 Pneumonia due to coronavirus disease 2019; R06.00 Dyspnea, unspecified; J45.909 Unspecified asthma, uncomplicated; Z79.899 Other long term (current) drug therapy; Z88.8 Allergy status to other drugs, medicaments and biological substances; Z91.040 Latex allergy status

== ENCOUNTER 2020-11-07 21:19 | Emergency (ER) | payer OTHER ==
[~2020-11-07] VITALS: Ht 177.8 cm; Wt 89.8 kg
[~2020-11-07 21:19] MED LIST changes: +ADVAIR 100-501 EACH INH; +AZITHROMYCIN 2250 MG PO; +PREDNISONE 20 M20 M1 PO; +VIRTUSSIN AC W473 ML PO
[2020-11-07 22:06] VITALS: BP 117/70
== END 2020-11-07 22:08 | disposition home or self-care (01) ==
LOC: ER 21:19
DX: U07.1 COVID-19 (principal); J45.909 Unspecified asthma, uncomplicated; Z98.84 Bariatric surgery status; Z79.899 Other long term (current) drug therapy; Z79.2 Long term (current) use of antibiotics; Z88.8 Allergy status to other drugs, medicaments and biological substances; Z91.040 Latex allergy status

== ENCOUNTER 2021-02-15 19:25 | Emergency (ER) | payer OTHER ==
[~2021-02-15] VITALS: Ht 175.3 cm; Wt 78.5 kg
[2021-02-15 19:53] LABS: URINE BILIRUBIN NEGATIVE (Negative); URINE BLOOD NEGATIVE (Negative); URINE CLARITY CLEAR; URINE COLOR YELLOW; URINE GLUCOSE-RANDOM* NEGATIVE (Negative); URINE KETONES NEGATIVE (Negative); URINE LEUKOCYTES-REFLEX TRACE (Negative); URINE NITRITE-REFLEX NEGATIVE (Negative); URINE PROTEIN (DIPSTICK) NEGATIVE (Negative); URINE UROBILINOGEN >= 8.0 E.U./dl (0.2-1.0)
[2021-02-15 20:28] LABS: ABSOLUTE NEUTROPHILS 2.9 thou/uL (1.4-8.2); BASOPHILS 0.5 % (0.0-2.0); EOSINOPHILS 5.5 % (0.0-3.0); HEMOGLOBIN 9.2 gm/dL (12.0-15.0); LYMPHOCYTES 32.2 % (24.0-44.0); MCV 81.6 fL (80.0-100.0); MONOCYTES 6.1 % (1.0-8.0); PLATELET COUNT 237 thou/uL (150-400); POLYS 55.7 % (36.0-66.0); RBC 3.43 mil/uL (4.20-5.00); RDW 15.5 % (10.5-14.5); WBC 5.2 thou/uL (4.0-11.0)
[2021-02-15 20:45] LABS: CALCIUM 8.3 mg/dL (8.5-10.1); CREATININE 0.7 mg/dL (0.6-1.0); POTASSIUM 3.4 mmol/L (3.5-5.1)
[2021-02-15 20:50] LABS: MAGNESIUM 1.7 mg/dL (1.8-2.4); TOTAL BILIRUBIN 0.5 mg/dL (0.2-1.0); TOTAL PROTEIN 6.8 g/dL (6.4-8.2)
[2021-02-15 21:23] VITALS: BP 118/75
[2021-02-15] MEDS ORDERED: NORCO 10-325 T1 EACH PO (21:32)
== END 2021-02-15 21:52 | disposition home or self-care (01) ==
LOC: ER 19:25
PROVIDERS: Physician Assistant
DX: R53.83 Other fatigue (principal); E05.80 Other thyrotoxicosis without thyrotoxic crisis or storm; M79.18 Myalgia, other site; J45.909 Unspecified asthma, uncomplicated; Z91.040 Latex allergy status; Z88.6 Allergy status to analgesic agent; Z88.8 Allergy status to other drugs, medicaments and biological substances; Z79.899 Other long term (current) drug therapy

== ENCOUNTER 2021-02-17 12:29 | Emergency (ER) | payer OTHER ==
[~2021-02-17] VITALS: Ht 175.3 cm; Wt 78.5 kg
[~2021-02-17 12:29] MED LIST changes: +NORCO 10-325 T1 EACH PO
[2021-02-17] MEDS ORDERED: POTASSIUM20 PO (12:42)
[2021-02-17 13:15] LABS: URINE BILIRUBIN NEGATIVE (Negative); URINE BLOOD NEGATIVE (Negative); URINE CLARITY CLEAR; URINE COLOR YELLOW; URINE GLUCOSE-RANDOM* NEGATIVE (Negative); URINE KETONES NEGATIVE (Negative); URINE LEUKOCYTES-REFLEX TRACE (Negative); URINE NITRITE-REFLEX NEGATIVE (Negative); URINE PROTEIN (DIPSTICK) NEGATIVE (Negative); URINE SPECIFIC GRAVITY <= 1.005 (1.005-1.035)
[2021-02-17 14:14] LABS: ANION GAP 8 mmol/L (7-16); BUN 6 mg/dL (7-18); CALCIUM 8.3 mg/dL (8.5-10.1); CHLORIDE 108 mmol/L (98-107); CO2 26 mmol/L (21-32); CREATININE 0.6 mg/dL (0.6-1.0); GLUCOSE 66 mg/dL (74-106); POTASSIUM 3.2 mmol/L (3.5-5.1); SODIUM 142 mmol/L (136-145)
[2021-02-17 14:15] LABS: ABSOLUTE NEUTROPHILS 2.7 thou/uL (1.4-8.2); BASOPHILS 0.4 % (0.0-2.0); EOSINOPHILS 5.4 % (0.0-3.0); HEMOGLOBIN 9.2 gm/dL (12.0-15.0); LYMPHOCYTES 25.9 % (24.0-44.0); MCH 26.9 pg (26.0-34.0); MCHC 32.9 g/dL (28.0-37.0); MCV 81.7 fL (80.0-100.0); PLATELET COUNT 229 thou/uL (150-400); POLYS 62.3 % (36.0-66.0); RBC 3.43 mil/uL (4.20-5.00); RDW 15.2 % (10.5-14.5); WBC 4.3 thou/uL (4.0-11.0)
[2021-02-17 14:25] LABS: ALBUMIN 2.9 g/dL (3.4-5.0); MAGNESIUM 1.7 mg/dL (1.8-2.4); SGOT 30 U/L (15-37); SGPT 33 U/L (14-59); TOTAL BILIRUBIN 0.4 mg/dL (0.2-1.0); TOTAL PROTEIN 6.6 g/dL (6.4-8.2); TROPONIN-I <0.06 ng/mL (<0.06)
--- NOTE | 2021-02-17 14:40 | EKG ---
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
[2021-02-17] MEDS ORDERED: MAGNESIUM400 M1 PO (15:55)
[2021-02-17 16:09] VITALS: BP 128/86
== END 2021-02-17 16:09 | disposition home or self-care (01) ==
LOC: ER 12:29
PROVIDERS: Nurse Practitioner Family
DX: M79.18 Myalgia, other site (principal); E87.6 Hypokalemia; E83.42 Hypomagnesemia; J45.909 Unspecified asthma, uncomplicated; Z86.16 Personal history of COVID-19; Z79.899 Other long term (current) drug therapy; Z88.8 Allergy status to other drugs, medicaments and biological substances; Z91.040 Latex allergy status

== ENCOUNTER 2021-05-19 21:39 | Emergency (ER) | payer OTHER ==
[~2021-05-19] VITALS: Ht 177.8 cm; Wt 77.1 kg
[~2021-05-19 21:39] MED LIST changes: +MAGNESIUM400 M1 PO; +POTASSIUM20 PO
[2021-05-19 22:21] LABS: URINE BILIRUBIN NEGATIVE (Negative); URINE BLOOD NEGATIVE (Negative); URINE CLARITY CLEAR; URINE COLOR YELLOW; URINE GLUCOSE-RANDOM* NEGATIVE (Negative); URINE KETONES TRACE (Negative); URINE LEUKOCYTES-REFLEX NEGATIVE (Negative); URINE NITRITE-REFLEX NEGATIVE (Negative); URINE PROTEIN (DIPSTICK) NEGATIVE (Negative)
[2021-05-19 22:22] LABS: ABSOLUTE NEUTROPHILS 3.3 thou/uL (1.4-8.2); BASOPHILS 0.4 % (0.0-2.0); HEMATOCRIT 31.1 % (37.0-47.0); HEMOGLOBIN 9.7 gm/dL (12.0-15.0); LYMPHOCYTES 34.5 % (24.0-44.0); MCH 24.7 pg (26.0-34.0); MCHC 31.2 g/dL (28.0-37.0); MCV 79.1 fL (80.0-100.0); MONOCYTES 5.1 % (1.0-8.0); PLATELET COUNT 291 thou/uL (150-400); RBC 3.93 mil/uL (4.20-5.00); RDW 18.1 % (10.5-14.5); WBC 5.8 thou/uL (4.0-11.0)
[2021-05-19 22:30] LABS: CALCIUM 8.3 mg/dL (8.5-10.1); CREATININE 0.9 mg/dL (0.6-1.0); POTASSIUM 4.1 mmol/L (3.5-5.1)
[2021-05-19 22:40] LABS: ALBUMIN 3.2 g/dL (3.4-5.0); TOTAL BILIRUBIN 0.3 mg/dL (0.2-1.0); TOTAL PROTEIN 7.2 g/dL (6.4-8.2)
[2021-05-19] MEDS ORDERED: FLEXERIL PO (23:37)
[2021-05-19] MEDS ORDERED: PROTONIX40 M3 PO (23:37)
[2021-05-19] MEDS ORDERED: NAPROSYN500 M1 PO (23:37)
[2021-05-19 23:41] VITALS: BP 141/93
--- NOTE | 2021-05-20 07:28 | EKG ---
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
== END 2021-05-19 23:50 | disposition home or self-care (01) ==
LOC: ER 21:39
PROVIDERS: Student in an Organized Health Care Education/Training Program
DX: R07.89 Other chest pain (principal); J45.909 Unspecified asthma, uncomplicated; Z79.899 Other long term (current) drug therapy; Z88.8 Allergy status to other drugs, medicaments and biological substances; Z88.6 Allergy status to analgesic agent; Z91.040 Latex allergy status; Z88.5 Allergy status to narcotic agent

== ENCOUNTER 2021-07-05 22:10 | Emergency (ER) | payer OTHER ==
[~2021-07-05] VITALS: Ht 175.3 cm; Wt 78.5 kg
[~2021-07-05 22:10] MED LIST changes: +FLEXERIL PO; +NAPROSYN500 M1 PO; +PROTONIX40 M3 PO
[2021-07-05 22:59] LABS: URINE BILIRUBIN NEGATIVE (Negative); URINE BLOOD NEGATIVE (Negative); URINE CLARITY SL CLOUDY; URINE COLOR YELLOW; URINE GLUCOSE-RANDOM* NEGATIVE (Negative); URINE KETONES NEGATIVE (Negative); URINE LEUKOCYTES-REFLEX NEGATIVE (Negative); URINE NITRITE-REFLEX NEGATIVE (Negative); URINE PROTEIN (DIPSTICK) NEGATIVE (Negative)
[2021-07-05 23:00] LABS: ANION GAP 7 mmol/L (7-16); BUN 10 mg/dL (7-18); CALCIUM 8.6 mg/dL (8.5-10.1); CHLORIDE 105 mmol/L (98-107); CO2 28 mmol/L (21-32); CREATININE 0.7 mg/dL (0.6-1.0); GLUCOSE 86 mg/dL (74-106); POTASSIUM 3.5 mmol/L (3.5-5.1); SODIUM 140 mmol/L (136-145)
[2021-07-05 23:05] LABS: ABSOLUTE NEUTROPHILS 3.8 thou/uL (1.4-8.2); BASOPHILS 0.4 % (0.0-2.0); EOSINOPHILS 3.3 % (0.0-3.0); HEMATOCRIT 30.7 % (37.0-47.0); HEMOGLOBIN 9.6 gm/dL (12.0-15.0); LYMPHOCYTES 31.8 % (24.0-44.0); MCH 24.7 pg (26.0-34.0); MCHC 31.3 g/dL (28.0-37.0); MCV 78.9 fL (80.0-100.0); MONOCYTES 6.1 % (1.0-8.0); PLATELET COUNT 319 thou/uL (150-400); POLYS 58.4 % (36.0-66.0); RBC 3.89 mil/uL (4.20-5.00); RDW 18.7 % (10.5-14.5); WBC 6.5 thou/uL (4.0-11.0)
[2021-07-05 23:11] LABS: ALBUMIN 3.2 g/dL (3.4-5.0); DIRECT BILIRUBIN < 0.1 mg/dL (<0.1-0.2); LIPASE 144 U/L (73-393); SGOT 17 U/L (15-37); SGPT 21 U/L (14-59); TOTAL BILIRUBIN 0.4 mg/dL (0.2-1.0); TOTAL PROTEIN 7.2 g/dL (6.4-8.2)
[2021-07-06] MEDS ORDERED: ZOFRAN ODT4 MG PO (02:34)
[2021-07-06] MEDS ORDERED: PERCOCET 5-3251 EACH PO (02:40)
[2021-07-06 02:54] VITALS: BP 105/67
== END 2021-07-06 02:54 | disposition home or self-care (01) ==
LOC: ER 22:10
PROVIDERS: Student in an Organized Health Care Education/Training Program
DX: R10.9 Unspecified abdominal pain (principal); R11.10 Vomiting, unspecified; R19.7 Diarrhea, unspecified; Z20.822 Contact with and (suspected) exposure to COVID-19; J45.909 Unspecified asthma, uncomplicated; Z88.6 Allergy status to analgesic agent; Z88.1 Allergy status to other antibiotic agents; Z91.040 Latex allergy status; Z98.84 Bariatric surgery status

== ENCOUNTER 2021-07-07 20:42 | Emergency (ER) | payer OTHER ==
[~2021-07-07 20:42] MED LIST changes: +PERCOCET 5-3251 EACH PO
== END 2021-07-07 21:16 | disposition left against medical advice (07) ==
LOC: ER 20:42
DX: R10.9 Unspecified abdominal pain (principal); Z53.21 Procedure and treatment not carried out due to patient leaving prior to being seen by health care provider; Z88.8 Allergy status to other drugs, medicaments and biological substances; Z88.6 Allergy status to analgesic agent; Z91.02 Food additives allergy status; Z91.040 Latex allergy status

== ENCOUNTER 2021-10-09 14:22 | Emergency (ER) | payer OTHER ==
[~2021-10-09] VITALS: Ht 175.3 cm; Wt 76.2 kg
[2021-10-09 14:30] VITALS: BP 126/80
[2021-10-09 14:44] LABS: URINE BILIRUBIN NEGATIVE (Negative); URINE BLOOD 2+ (Negative); URINE CLARITY CLEAR; URINE COLOR YELLOW; URINE GLUCOSE-RANDOM* NEGATIVE (Negative); URINE KETONES NEGATIVE (Negative); URINE LEUKOCYTES-REFLEX NEGATIVE (Negative); URINE NITRITE-REFLEX NEGATIVE (Negative); URINE PROTEIN (DIPSTICK) NEGATIVE (Negative)
[2021-10-09 14:53] LABS: SQUAMOUS >10 Many /LPF (0-3)
[2021-10-09 14:54] LABS: URINE RBC 3-10 Few /HPF (NONE SEEN); URINE WBC-REFLEX 0-5 Rare /HPF (0-5)
[2021-10-09 14:58] LABS: BACTERIA-REFLEX 1-9 Few /HPF (None Seen); CASTS None Seen /LPF (None Seen); CRYSTALS None Seen /LPF (None Seen)
== END 2021-10-09 16:39 | disposition home or self-care (01) ==
LOC: ER 14:22
PROVIDERS: Physician Assistant
DX: O20.9 Hemorrhage in early pregnancy, unspecified (principal); J45.909 Unspecified asthma, uncomplicated; Z3A.01 Less than 8 weeks gestation of pregnancy; Z86.16 Personal history of COVID-19; Z79.51 Long term (current) use of inhaled steroids; Z79.899 Other long term (current) drug therapy; Z88.5 Allergy status to narcotic agent; Z88.6 Allergy status to analgesic agent; Z91.040 Latex allergy status

== ENCOUNTER 2021-10-21 03:30 | Emergency (ER) | payer OTHER ==
[~2021-10-21] VITALS: Ht 175.3 cm; Wt 73.9 kg
[2021-10-21 05:38] VITALS: BP 119/75
== END 2021-10-21 05:53 | disposition home or self-care (01) ==
LOC: ER 03:30
DX: R51.9 Headache, unspecified (principal); J45.909 Unspecified asthma, uncomplicated; Z79.899 Other long term (current) drug therapy; Z91.040 Latex allergy status; Z88.5 Allergy status to narcotic agent; Z88.6 Allergy status to analgesic agent; V89.2XXA Person injured in unspecified motor-vehicle accident, traffic, initial encounter; Y93.89 Activity, other specified; Y92.89 Other specified places as the place of occurrence of the external cause; Y99.8 Other external cause status